=== PATIENT | male | born 1965 | race Caucasian/White ===

== ENCOUNTER 2018-02-12 17:37 | Emergency (ER) | payer OTHER ==
--- NOTE | 2018-02-12 17:40 | PDOC ---
Rapid Medical Evaluation Chief Complaint: Sore Throat Time Seen by Provider: 02/12/18 17:39 Medical Evaluation: Allergies Allergy/AdvReac Type Severity Reaction Status Date / Time No Known Drug Allergies Allergy Verified 03/20/12 08:52 02/12/18 17:39 I performed a brief in person evaluation. CC: Rash HPI: Pt is a 52 YO male with a hx of sore throat x 7 day. PE: Skin: Clear Lungs: Clear Heart: RRR MS: Moves all extremities without difficulty Neuro: Alert Psych: Appropriate affect RBS was ordered. Pt will go to [facility] for further evaluation. Discharge Disposition - Diagnosis Sore throat - Discharge Dispostion Condition at time of disposition: Stable - Referrals - Patient Instructions - Post Discharge Activity
[2018-02-12 17:42] VITALS: BP 147/98; PULSE 102; TEMP 98.5; BMI 25.7
--- NOTE | 2018-02-12 18:22 | PDOC ---
History of Present Illness - General Chief Complaint: Sore Throat Stated Complaint: SORE THROAT Time Seen by Provider: 02/12/18 17:39 - History of Present Illness Initial Comments: 02/12/18 18:19 52-year-old male without comorbidities presents for evaluation of sore throat 5 days with subjective fever at home. Past History - Past Medical History Allergies/Adverse Reactions: Allergies Allergy/AdvReac Type Severity Reaction Status Date / Time No Known Drug Allergies Allergy Verified 03/20/12 08:52 Home Medications: Ambulatory Orders Amlodipine Besylate [Norvasc -] 5 mg PO DAILY 03/20/12 Benazepril HCl [Lotensin] 20 mg PO 03/20/12 Anemia: No Asthma: No Cancer: No Cardiac Disorders: No CVA: No COPD: No CHF: No Dementia: No Diabetes: No GI Disorders: No Disorders: No HTN: Yes Hypercholesterolemia: No Liver Disease: No Seizures: No Thyroid Disease: No - Immunization History Immunization Up to Date: No - Suicide/Smoking/Psychosocial Hx Smoking History: Never smoked Have you smoked in the past 12 months: No Information on smoking cessation initiated: No Hx Alcohol Use: No Drug/Substance Use Hx: No Substance Use Type: Alcohol Hx Substance Use Treatment: No Review of Systems - Review of Systems Constitutional: Yes: Fever HEENTM: Yes: Throat Pain *Physical Exam - Vital Signs Last Vital Signs Temp Pulse Resp BP Pulse Ox 98.5 F 102 H 18 147/98 95 02/12/18 17:39 02/12/18 17:39 02/12/18 17:39 02/12/18 17:39 02/12/18 17:39 - Physical Exam Comments: 02/12/18 18:20 HEAD: NC/AT EYES: Conjuntiva clear Ears: Canals and TM's normal NOSE: No d/c THROAT: Moist mucous membrances, oral pharanx clear, uvula midline NECK: Supple without adenopathy CARDIAC: S1 S2 LUNGS: CTA Full and Equal breath sounds ABDOMEN: Soft NT ND MS: Full ROM in all joints without edema NEUROLOGIC: No gross sensory or motor deficits, NVID SKIN: Normal color and temperature no lesions or rashes Moderate Sedation - Procedure Monitoring Vital Signs: Procedure Monitoring Vital Signs Temperature 98.5 F 02/12/18 17:39 Pulse Rate 102 H 02/12/18 17:39 Respiratory Rate 18 02/12/18 17:39 Blood Pressure 147/98 02/12/18 17:39 O2 Sat by Pulse Oximetry (%) 95 02/12/18 17:39 *DC/Admit/Observation/Transfer Diagnosis at time of Disposition: Sore throat, Viral pharyngitis - Discharge Dispostion Disposition: HOME Condition at time of disposition: Stable Decision to Admit order: No - Referrals Referrals: Chayito Herrera [Primary Care Provider] - - Patient Instructions Printed Discharge Instructions: Viral Pharyngitis, DI for Viral Pharyngitis Additional Instructions: Return to the emergency room should symptoms worsen or go unresolved. Please continue to take Tylenol Motrin for pain and fever. Warm saltwater gargles 5-6 times a day will help with your pain. He rapid strep today was negative, culture was sent. Should he require antibiotics we will call you. Follow-up with your primary care physician one to 2 days for further evaluation and treatment options. - Post Discharge Activity
== END 2018-02-12 18:38 | disposition home or self-care (01) ==
LOC: JERFT 17:37
DX: J02.9 Acute pharyngitis, unspecified (principal); I10 Essential (primary) hypertension
CPT/HCPCS: 87070; 87880; 99281-25